=== PATIENT | male | born 1975 | race Hispanic/Latino ===

== ENCOUNTER → 2022-06-12 | Outpatient (CLI) | payer BC ==
[~2022-06-12] MED LIST: REGADENOSON 0.4 MG/5 ML PF SYG IVP ONE
== END | disposition home or self-care (01) ==
LOC: SHCH 08:16
PROVIDERS: ATTEND Internal Medicine Cardiovascular Disease
DX: I25.10 Atherosclerotic heart disease of native coronary artery without angina pectoris (principal); I25.9 Chronic ischemic heart disease, unspecified
CPT/HCPCS: 78452; 93017; J2785; A9500 ×2; 96374